=== PATIENT | female | born 1930 | race Asian ===

== ENCOUNTER 2019-04-04 07:30 | Emergency (ER) | payer OTHER ==
[~2019-04-04] VITALS: Ht 149.9 cm; Wt 49.9 kg
[~2019-04-04 07:30] MED LIST: ALBU8.5H8 INH; ALPR0.25 PO; AMLO5TAB4 PO; BUDE6HFA INH; CAT.1 PO; EZET10TA PO; GLIP10TA21 PO; GLU500 PO; LEVO125T PO; LEVO250T2 PO; LOSA100T3 PO; METH4TAB3 PO; METO25TA3 PO; PHEDM120 PO; WARF2TAB2 PO
[2019-04-04 07:36] VITALS: BP_SYST 96
--- NOTE | 2019-04-04 07:48 | NUR ---
ER Dr. roblero at bedside examining patient.
--- NOTE | 2019-04-04 07:48 | NUR ---
Placed in room 7. Placed on campus monitor, blood pressure machine and pulse oximeter. To gown for exam. Side rails up. Report given to Kendy DUDLEY.
--- NOTE | 2019-04-04 07:55 | NUR ---
Note isidro in EDM - 04/04/19 at 0935 by EMILY Patient presented to ER with c/o confusion, Patient brought in by daughter via wheelchair. Daughter of patient stated the patient was found sitting on floor at home with blood in left ear and blood on floor of home. Per daughter Patient normally A&Ox4 speaks german but today patient is confused and only speaking in Tagalog. Patient is cooperative, non-verbal, no other injury noted, skin pink, cap refill brisk.
--- NOTE | 2019-04-04 07:55 | NUR ---
Patient presented to ER with c/o confusion, Patient brought in by daughter via wheelchair. Daughter of patient stated the patient was found sitting on floor at home with blood in left ear and blood on floor of home. Per daughter Patient normally A&Ox4 speaks austrian but today patient is confused and only speaking in Tagalog. Patient is cooperative, non-verbal, bruise to right medial eye lid noted, skin pink, cap refill brisk.
[2019-04-04 08:32] LABS: BASOPHILS # (AUTO) 0.1 K/uL (0.0-0.2); BASOPHILS % (AUTO) 0.5 % (0.0-2.0); EOSINOPHILS % (AUTO) 0.2 % (0.0-4.0); HEMATOCRIT 35.9 % (36-48); HEMOGLOBIN 11.9 g/dL (12.0-16.0); LYMPHOCYTES # (AUTO) 1.1 K/uL (1.0-5.5); LYMPHOCYTES % (AUTO) 6.9 % (20.5-51.5); MEAN CORPUSCULAR HEMOGLOBIN 29 pg (27-31); MEAN CORPUSCULAR HGB CONC 33 % (32-36); MEAN CORPUSCULAR VOLUME 87 fL (79.0-98.0); MONOCYTES % (AUTO) 6.2 % (1.7-9.3); NEUTROPHILS # (AUTO) 14.3 K/uL (1.8-7.7); NEUTROPHILS % (AUTO) 86.2 % (40.0-70.0); PLATELET COUNT (AUTO) 233 K/uL (130-430); RED BLOOD CELL COUNT(AUTO) 4.14 MIL/uL (4.2-6.2); RED CELL DISTRIBUTION WIDTH 14.8 % (9.0-15.0); WHITE BLOOD COUNT (AUTO) 16.6 K/uL (4.8-10.8)
[2019-04-04 08:41] LABS: ANION GAP 11 (5-15); CALCIUM 9.5 mg/dL (8.4-11.0); CHLORIDE 98 mmol/L (98-107); CREATININE 0.74 mg/dL (0.55-1.30); GLUCOSE 224 mg/dL (70-99); SODIUM SERUM 133 mmol/L (136-145); UREA NITROGEN, BLOOD 34 mg/dL (8-21)
[2019-04-04 08:47] LABS: ALANINE AMINOTRANSFERASE 32 U/L (12-78); ALBUMIN 3.4 g/dL (3.4-4.8); ASPARTATE AMINOTRANSFERASE 36 U/L (10-37); INR 2.6 (0.8-1.2); TOTAL BILIRUBIN 0.3 mg/dL (0.0-1.0)
--- NOTE | 2019-04-04 08:50 | NUR ---
# 14 FR In and Out catheter with use of sterile technique. Immediate return of 30 ml yellow urine noted. Urine sample collected and sent to lab. Pt tolerated procedure well. Patient unable to toilet self.
[2019-04-04 08:51] LABS: POTASSIUM 4.4 mmol/L (3.5-5.1)
--- NOTE | 2019-04-04 08:55 | NUR ---
Patient to CT with radiology staff.
--- NOTE | 2019-04-04 09:07 | NUR ---
Patient to ER bed from CT with radiology staff
[2019-04-04 09:16] LABS: BILIRUBIN,URINE NEGATIVE (NEGATIVE); BLOOD, URINE 1+ (NEGATIVE); COLOR,URINE YELLOW (YELLOW); GLUCOSE,URINE NEGATIVE (NEGATIVE); KETONES,URINE NEGATIVE (NEGATIVE); LEUKOCYTE ESTERASE ,URINE 1+ (NEGATIVE); NITRITE, URINE NEGATIVE (NEGATIVE); PH,URINE 5.5 (5.0-8.0); UROBILINOGEN,URINE 0.2 (0.2-1.0)
[2019-04-04 09:24] LABS: PROTEIN URINE 2+ (NEGATIVE)
[2019-04-04 09:25] LABS: CLARITY/URINE SLIGHTLY HAZY (CLEAR)
[2019-04-04] MEDS ORDERED: PHYTONADIONE 10 MG/ML AMP ONE (09:35)
[2019-04-04 09:36] LABS: BACTERIA,URINE MANY /HPF (None Seen); RBC,URINE 0-3 /HPF (0-3); WBC,URINE 20-50 /HPF (0-3)
[2019-04-04 09:37] LABS: MUCUS,URINE None Seen /LPF (None Seen)
[2019-04-04] MEDS ORDERED: NS 250 ML IV ONE (09:45)
[2019-04-04] MEDS ORDERED: PHYTONADIONE 10 MG/ML AMP IV ONE (09:45)
--- NOTE | 2019-04-04 09:57 | NUR ---
Patient to be transferred to [facility] . Is being transferred due to higher level of care. Receiving facility has accepting physician and available space. ER physician has signed transfer form. Patient or responsible republican has agreed to transfer and signed form. Patient belongings inventoried and will be sent with patient. Copy of nursing notes, lab reports, EKG, Physicians Orders and X-rays to be sent with patient. Report called to Chelsy DUDLEY at receiving facility. Receiving physician is Dr. Jimenez. ambulance service has been called for transfer. ETA is 20.
[2019-04-04 10:30] VITALS: BP_SYST 142
--- NOTE | 2019-04-04 10:33 | NUR ---
Report to [facility]
== END 2019-04-04 10:33 | disposition short-term general hospital (02) ==
LOC: SED 07:30
DX: S06.6X0A Traumatic subarachnoid hemorrhage without loss of consciousness, initial encounter (principal); F41.9 Anxiety disorder, unspecified; I48.91 Unspecified atrial fibrillation; E11.9 Type 2 diabetes mellitus without complications; I10 Essential (primary) hypertension; E03.9 Hypothyroidism, unspecified; Z88.1 Allergy status to other antibiotic agents; Z79.899 Other long term (current) drug therapy; X58.XXXA Exposure to other specified factors, initial encounter; Y93.89 Activity, other specified; Y92.89 Other specified places as the place of occurrence of the external cause; Y99.8 Other external cause status
CPT/HCPCS: 36415; 70450; 71045; 80053; 81000; 83605; 84484; 85025; 85610; 85730; 87086; 87186; 93005; 96365; 99291; J3430; J7050; 82962